=== PATIENT | female | born 1965 | race Caucasian/White ===

== ENCOUNTER 2024-04-07 18:45 | Emergency (ER) | payer SELFPAY ==
[~2024-04-07] VITALS: Ht 165.1 cm; Wt 70.0 kg
[2024-04-07 18:48] VITALS: TEMP 98.6; O2SAT 98
[2024-04-07] MEDS ORDERED: ONDANSETRON HCL 4MG/2ML INJ IV ONE (19:15)
[2024-04-07] MEDS: SODIUM CHLORIDE 0.9% 1,000 ML IV ONE (19:15)
[2024-04-07 20:04] LABS: BASOPHILS % 0.4 % (0.0-2.0); EOSINOPHILS % 0.8 % (0.0-5.0); HEMATOCRIT. 39.7 % (36.0-48.0); HEMOGLOBIN. 13.4 g/dL (12.0-16.0); LYMPHOCYTES % 23.7 % (20.0-50.0); MEAN CORPUSCULAR HEMOGLOBIN 30.7 pg (28.0-32.0); MEAN CORPUSCULAR HGB CONC 33.8 g/dL (31.0-37.0); MEAN CORPUSCULAR VOLUME 90.7 fL (81.0-99.0); MEAN PLATELET VOLUME 10.7 fl (7.4-10.4); MONOCYTES % 5.2 % (2.0-8.0); NEUTROPHILS % 69.9 % (40.0-76.0); PLATELET 182 x1000/uL (130-400); RED BLOOD CELL COUNT 4.38 mill/uL (4.2-5.4); RED CELL DISTRIBUTION WIDTH 12.4 % (11.6-14.6); WHITE BLOOD COUNT 12.7 x1000/uL (4.5-11.0)
[2024-04-07 20:09] LABS: CHLORIDE 104 mEq/L (98-107); POTASSIUM 3.5 mEq/L (3.5-5.1); SODIUM 136 mEq/L (136-145)
[2024-04-07 20:10] LABS: CARBON DIOXIDE 25 mEq/L (21-32)
[2024-04-07 20:11] LABS: CALCIUM 9.1 mg/dL (8.7-10.4)
[2024-04-07 20:13] LABS: INR 0.9; PROTHROMBIN TIME 10.3 sec (9.6-11.0)
[2024-04-07 20:15] LABS: CREATININE 1.6 mg/dL (0.6-1.0); GLUCOSE 303 mg/dL (70-105)
[2024-04-07 20:16] LABS: UREA NITROGEN BLOOD 10 mg/dL (9-23)
[2024-04-07 20:26] LABS: TROPONIN I HIGH SENSITIVITY < 4 ng/L (3.0-34)
[2024-04-07] MEDS: MECLIZINE 12.5MG TABLET PO NR (21:15)
[2024-04-07] MEDS: ONDANSETRON HCL 4MG/2ML INJ IV ONE (21:16)
[2024-04-07] MEDS: INSULIN REGULAR (HUMULIN R) 300UNITS/3ML VIAL SUBCUT ONE (22:15)
[2024-04-07] MEDS ORDERED: MECL-299 MT (23:34)
[2024-04-08 00:47] VITALS: BP 110/57; PULSE 65; RESP 18
== END 2024-04-08 00:30 | disposition home or self-care (01) ==
LOC: ER 18:45
DX: H81.10 Benign paroxysmal vertigo, unspecified ear (principal); E11.65 Type 2 diabetes mellitus with hyperglycemia; E78.00 Pure hypercholesterolemia, unspecified
CPT/HCPCS: 99284; 96374; 96361; 80048; 83690; 85025; 85610; 84484; 36415; 93005; J2405; J7030